=== PATIENT | female | born 1955 | race Caucasian/White ===

== ENCOUNTER 2017-04-16 11:22 | Observation (INO) | payer BC ==
[~2017-04-16] VITALS: Ht 157.5 cm; Wt 75.0 kg
[~2017-04-16 11:22] MED LIST: ATEN25TA PO; LIPI40TA PO
[2017-04-16 11:24] VITALS: BP 189/92; PULSE 72; RESP 20; TEMP 97.3; O2SAT 98
[2017-04-16] MEDS ORDERED: SODIUM CHLORIDE 0.9% FLUSH 10 ML FLUSH IVF PRN (11:45)
[2017-04-16] MEDS ORDERED: NITROGLYCERIN 0.4 MG SL 25 TABS/BTL SL ONE (11:45)
--- NOTE | 2017-04-16 11:47 | PD ---
HPI Chief Complaint: Chest Pain Time Seen by Provider: 11:43 Travel History International Travel<30 days: No Contact w/Intl Traveler<30days: No Traveled to known affect area: No History of Present Illness HPI Patient is a 6-year-old female presenting to emergency evaluation of chest pain. Patient states she had midsternal chest pain last night after dinner, this resolved on its own and she slept normally. She woke up this morning went to [employer] came home and ate breakfast when the chest pain started again, with this episode it radiated to her left arm and to her back and she stated her left arm felt numb. She reports the pain is more of an ache, her pain is rated at a 4 out of 10 at its worst. She denies any shortness of breath, nausea , vomiting, abdominal pain. Patient does report chewing Tums a lot but has no formal diagnosis of GERD. She is followed by Dr. Allison due to significant family history of cardiac disease. Mother with CHF, father with stroke, hypertension,AMI. Heart attack was not at an early age however. She does report that her brother has had several stents placed. Her family members were smokers, she has no history of tobacco use. PFSH Past Medical History High Cholesterol: Yes Hypertension: Yes Menopausal: Yes Past Surgical History Abdominal Surgery: Yes (TUMMY TUCK) Tonsillectomy: Yes Family History Family Hypercholesterolemia: Yes Social History Alcohol Use: Yes (SOCIAL) Tobacco Use: No Substance Use: No Allergies-Medications (Allergen,Severity, Reaction): Coded Allergies: No Known Allergies (Unverified , 04/26/16) Reported Meds & Prescriptions Reported Meds & Active Scripts Active Reported Lipitor (Atorvastatin Calcium) 40 Mg Tab 40 Mg PO HS Atenolol 25 Mg Tab 25 Mg PO DAILY Review of Systems Except as stated in HPI: all other systems reviewed are Neg Eyes: No: Visual changes HENT: No: Headaches Cardiovascular: Positive: Chest Pain or Discomfort, No: Dyspnea on exertion Respiratory: No: Shortness of Breath Gastrointestinal: No: Nausea Genitourinary: No: Dysuria Neurologic: Positive: Paresthesia, No: Weakness, Dizziness, Syncope Physical Exam Narrative GENERAL: Well-developed, well-nourished, alert female. Resting comfortably in no acute distress SKIN: Warm and dry. HEAD: Atraumatic. Normocephalic. EYES: Pupils equal and round. No scleral icterus. No injection or drainage. ENT: No nasal bleeding or discharge. Mucous membranes pink and moist. NECK: Trachea midline. No JVD. CARDIOVASCULAR: Regular rate and rhythm. RESPIRATORY: No accessory muscle use. Clear to auscultation. Breath sounds equal bilaterally. GASTROINTESTINAL: Abdomen soft, non-tender, nondistended. Hepatic and splenic margins not palpable. MUSCULOSKELETAL: Extremities without clubbing, cyanosis, or edema. No obvious deformities. NEUROLOGICAL: Awake and alert. No obvious cranial nerve deficits. Motor grossly within normal limits. Five out of 5 muscle strength in the arms and legs. Normal speech. PSYCHIATRIC: Appropriate mood and affect; insight and judgment normal. Data Data Last Documented VS Vital Signs Date Time Temp Pulse Resp B/P Pulse Ox O2 Delivery O2 Flow Rate FiO2 04/16/17 13:14 74 16 127/61 100 Room Air 04/16/17 12:10 2 04/16/17 11:24 97.3 Orders Electrocardiogram (04/16/17 11:35) Ckmb (Isoenzyme) Profile (04/16/17 11:35) Complete Blood Count With Diff (04/16/17 11:35) Comprehensive Metabolic Panel (04/16/17 11:35) Magnesium (Mg) (04/16/17 11:35) Prothrombin Time / Inr (Pt) (04/16/17 11:35) Act Partial Throm Time (Ptt) (04/16/17 11:35) Troponin I (04/16/17 11:35) Lipase (04/16/17 11:35) Chest, Single Ap (04/16/17 11:35) Ecg Monitoring (04/16/17 11:35) Bilateral Bp Monitoring (04/16/17 11:35) Iv Access Insert/Monitor (04/16/17 11:35) Oximetry (04/16/17 11:35) Oxygen Administration (04/16/17 11:35) Sodium Chloride 0.9% Flush (Ns Flush) (04/16/17 11:45) Nitroglycerin Sl (Nitrostat Sl) (04/16/17 11:45) CKMB (04/16/17 11:55) CKMB% (04/16/17 11:55) Admit Order (Ed Use Only) (04/16/17 13:46) Labs Laboratory Tests Test 04/16/17 11:55 White Blood Count 5.2 TH/MM3 Red Blood Count 5.01 MIL/MM3 Hemoglobin 12.3 GM/DL Hematocrit 38.3 % Mean Corpuscular Volume 76.3 FL Mean Corpuscular Hemoglobin 24.6 PG Mean Corpuscular Hemoglobin 32.2 % Concent Red Cell Distribution Width 16.0 % Platelet Count 221 TH/MM3 Mean Platelet Volume 9.7 FL Neutrophils (%) (Auto) 72.3 % Lymphocytes (%) (Auto) 17.3 % Monocytes (%) (Auto) 9.1 % Eosinophils (%) (Auto) 1.1 % Basophils (%) (Auto) 0.2 % Neutrophils # (Auto) 3.8 TH/MM3 Lymphocytes # (Auto) 0.9 TH/MM3 Monocytes # (Auto) 0.5 TH/MM3 Eosinophils # (Auto) 0.1 TH/MM3 Basophils # (Auto) 0.0 TH/MM3 CBC Comment DIFF FINAL Differential Comment Prothrombin Time 10.7 SEC Prothromb Time International 1.0 RATIO Ratio Activated Partial 25.5 SEC Thromboplast Time Sodium Level 140 MEQ/L Potassium Level 4.1 MEQ/L Chloride Level 107 MEQ/L Carbon Dioxide Level 25.3 MEQ/L Anion Gap 8 MEQ/L Blood Urea Nitrogen 17 MG/DL Creatinine 0.92 MG/DL Estimat Glomerular Filtration 62 ML/MIN Rate Random Glucose 87 MG/DL Calcium Level 9.1 MG/DL Magnesium Level 2.3 MG/DL Total Bilirubin 0.4 MG/DL Aspartate Amino Transf 30 U/L (AST/SGOT) Alanine Aminotransferase 29 U/L (ALT/SGPT) Alkaline Phosphatase 96 U/L Total Creatine Kinase 152 U/L Creatine Kinase MB 1.8 NG/ML Troponin I LESS THAN 0.02 NG/ML Total Protein 7.1 GM/DL Albumin 3.6 GM/DL Lipase 106 U/L [facility] Medical Decision Making Medical Screen Exam Complete: Yes Emergency Medical Condition: Yes Interpretation(s) Laboratory Tests Test 04/16/17 11:55 White Blood Count 5.2 TH/MM3 Red Blood Count 5.01 MIL/MM3 Hemoglobin 12.3 GM/DL Hematocrit 38.3 % Mean Corpuscular Volume 76.3 FL Mean Corpuscular Hemoglobin 24.6 PG Mean Corpuscular Hemoglobin 32.2 % Concent Red Cell Distribution Width 16.0 % Platelet Count 221 TH/MM3 Mean Platelet Volume 9.7 FL Neutrophils (%) (Auto) 72.3 % Lymphocytes (%) (Auto) 17.3 % Monocytes (%) (Auto) 9.1 % Eosinophils (%) (Auto) 1.1 % Basophils (%) (Auto) 0.2 % Neutrophils # (Auto) 3.8 TH/MM3 Lymphocytes # (Auto) 0.9 TH/MM3 Monocytes # (Auto) 0.5 TH/MM3 Eosinophils # (Auto) 0.1 TH/MM3 Basophils # (Auto) 0.0 TH/MM3 CBC Comment DIFF FINAL Differential Comment Prothrombin Time 10.7 SEC Prothromb Time International 1.0 RATIO Ratio Activated Partial 25.5 SEC Thromboplast Time Sodium Level 140 MEQ/L Potassium Level 4.1 MEQ/L Chloride Level 107 MEQ/L Carbon Dioxide Level 25.3 MEQ/L Anion Gap 8 MEQ/L Blood Urea Nitrogen 17 MG/DL Creatinine 0.92 MG/DL Estimat Glomerular Filtration 62 ML/MIN Rate Random Glucose 87 MG/DL Calcium Level 9.1 MG/DL Magnesium Level 2.3 MG/DL Total Bilirubin 0.4 MG/DL Aspartate Amino Transf 30 U/L (AST/SGOT) Alanine Aminotransferase 29 U/L (ALT/SGPT) Alkaline Phosphatase 96 U/L Total Creatine Kinase 152 U/L Creatine Kinase MB 1.8 NG/ML Troponin I LESS THAN 0.02 NG/ML Total Protein 7.1 GM/DL Albumin 3.6 GM/DL Lipase 106 U/L Vital Signs Date Time Temp Pulse Resp B/P Pulse Ox O2 Delivery O2 Flow Rate FiO2 04/16/17 11:24 97.3 72 20 189/92 98 Room Air Differential Diagnosis Acute coronary syndrome versus GERD versus arrhythmia versus pleurisy versus other Narrative Course Patient is a 62-year-old female presenting for evaluation of chest pain that had initiated last night, resolved on its own and returned again this morning. Chest pain appears to have been exacerbated by eating dinner last night and again after breakfast and coffee this morning. Patient does have a significant family history, she does have a history of hypertension. She was able to exercise this morning across foot with no chest pain which is reassuring. Labs and imaging ordered and pending. Patient's vital signs reviewed, she is hypertensive, nitroglycerin sublingual 1 dose ordered. Chest x-ray is unremarkable, first set of cardiac enzymes are negative. Labs are otherwise unremarkable. Attempted to contact Dr. Allison to discuss treatment plan, she is currently on vacation. With patient's recurring chest pain, family and personal medical history patient will be placed and chest pain center. Patient is agreeable to plan. Orders placed. Diagnosis Primary Impression: Chest pain Admitting Information Admitting Physician Requests: Observation Condition: Stable Mary Estrada CLASSIFICATION CLERK Apr 16, 2017 11:47
[2017-04-16 12:11] VITALS: BP_SYST 145; BP_SYST 149; BP_DIAS 75; BP_DIAS 82; PULSE 54; RESP 16; O2SAT 95
[2017-04-16 12:25] VITALS: BP 123/65; PULSE 63; RESP 16; O2SAT 99
[2017-04-16 12:37] LABS: AUTOMATED NEUTROPHIL # 3.8 TH/MM3 (1.8-7.7); BASOPHIL % 0.2 % (0.0-2.0); EOSINOPHIL # 0.1 TH/MM3 (0-0.4); EOSINOPHIL % 1.1 % (0.0-4.0); HEMATOCRIT 38.3 % (35.0-46.0); HEMO FLAGS DIFF FINAL; LYMPH % 17.3 % (9.0-44.0); LYMPHOCYTE # 0.9 TH/MM3 (1.0-4.8); MEAN CELL VOLUME 76.3 FL (80.0-100.0); MEAN CORPUSCULAR HEMOGLOBIN 24.6 PG (27.0-34.0); MEAN CORPUSCULAR HGB CONC 32.2 % (32.0-36.0); MONO % 9.1 % (0.0-8.0); NEUT % 72.3 % (16.0-70.0); PLATELET COUNT 221 TH/MM3 (150-450); RED BLOOD COUNT 5.01 MIL/MM3 (4.00-5.30); WHITE BLOOD COUNT 5.2 TH/MM3 (4.0-11.0)
--- NOTE | 2017-04-16 12:46 | RADRPT ---
EXAM DATE/TIME: 04/16/2017 11:34 [facility] COMPARISON: No previous studies available for comparison. INDICATIONS : Chest pain. MEDICAL HISTORY : Hypertension. SURGICAL HISTORY : Abdominoplasty. ENCOUNTER: Initial ACUITY: 2 days PAIN SCORE: 5/10 LOCATION: Bilateral chest FINDINGS: A single view of the chest demonstrates the lungs to be symmetrically aerated without evidence of mas s, infiltrate or effusion. The cardiomediastinal contours are unremarkable. Osseous structures are intact. CONCLUSION: Normal examination. Usman Meyers Jr., MD on April 16, 2017 at 12:45 Board Certified Radiologist. This report was verified electronically.
[2017-04-16 12:47] LABS: APTT (PATIENT) 25.5 SEC (24.3-30.1); PROTHROMBIN TIME - PATIENT 10.7 SEC (9.8-11.6)
[2017-04-16 13:02] LABS: ANION GAP 8 MEQ/L (5-15); AST (GOT) 30 U/L (15-37); BICARBONATE 25.3 MEQ/L (21.0-32.0); BLOOD UREA NITROGEN 17 MG/DL (7-18); CHLORIDE 107 MEQ/L (98-107); GLOMERULAR FILTRATION RATE 62 ML/MIN (>89); MAGNESIUM 2.3 MG/DL (1.5-2.5); SODIUM (NA) 140 MEQ/L (136-145)
[2017-04-16 13:09] LABS: POTASSIUM 4.1 MEQ/L (3.5-5.1)
[2017-04-16 13:14] VITALS: BP 127/61; PULSE 74; RESP 16; O2SAT 100
[2017-04-16 13:17] LABS: ALKALINE PHOSPHATASE 96 U/L (45-117); ALT (GPT) 29 U/L (10-53); CREATINE KINASE 152 U/L (26-192); TOTAL BILIRUBIN ADULT 0.4 MG/DL (0.2-1.0)
[2017-04-16 13:30] LABS: CKMB 1.8 NG/ML (0.5-3.6)
[2017-04-16] MEDS ORDERED: NITROGLYCERIN 0.4 MG SL 25 TABS/BTL SL PRN (14:15)
[2017-04-16] MEDS ORDERED: ACETAMINOPHEN 500 MG CPLT PO PRN (14:15)
[2017-04-16] MEDS ORDERED: ONDANSETRON HCL 4 MG/2 ML VIAL IV PRN (14:15)
--- NOTE | 2017-04-16 14:57 | HHI.HP ---
HPI Primary Care Physician Chelsea King MD Chief Complaint Chest pain History of Present Illness 62-year-old female with known hypertension and hyperlipidemia presents to the emergency room for further evaluation of chest pain. Onset 9 AM. Location substernal. Characterized as a pressure. Radiation to her back and left arm. Left arm described as numb. Duration 25 minutes. No associated symptoms of nausea, vomiting, shortness breath, or diaphoresis. No known precipitating factors. Relieving factors chewable aspirin. Had similar episode last evening prior to bed last evening, although states she was able to sleep fine. In fact , she was able to perform [employer] exercises at 6 AM without any chest discomfort. Review of Systems General: No fatigue,weakness, fever, chills, recent illness, recent travel, or change in appetite. Has been her general state of health. Performs CrossFit 3 times/weekly without any chest discomfort. HEENT: No BOWSER, no vision changes, no nasal congestion or drainage, no dysphasia CV: As stated above. No current chest pain or pressure. s RESP: No SOB, cough, wheeze, recent URI, or history of asthma. GI: No nausea, vomiting, bowel changes, diarrhea, constipation, pain, distention , melena, or blood in the stool. : No dysuria, urgency, frequency, history of frequent to UTIs, or history of kidney stones. Reports small simple cyst on left kidney. EXT: No lower leg edema, no paraesthesias MS: No discomfort or change in ROM NEURO: No difficulty with balance, LOC, motor/sensory deficits PSYCH: No anxiety, depression, or situational stress. SKIN: No rashes, no concerning lesions Past Family Social History Allergies: Coded Allergies: No Known Allergies (Unverified , 04/26/16) Past Medical History Hypertension, hyperlipidemia Past Surgical History Appendectomy, tonsillectomy,abdominoplasty Reported Medications Active Reported Lipitor (Atorvastatin Calcium) 40 Mg Tab 40 Mg PO HS Atenolol 25 Mg Tab 25 Mg PO DAILY Active Ordered Medications Current Medications Medications (Trade) Dose Ordered Sig/Gael Route Start Time Stop Time Status Last Admin (Tylenol) 500 mg Q4H PRN PO 04/16/17 14:15 (Zofran Inj) 4 mg Q6H PRN IV 04/16/17 14:15 (Nitrostat Sl) 0.4 mg Q5M PRN SL 04/16/17 14:15 (Aspirin) 325 mg DAILY PO 04/17/17 09:00 Family History Paternal grandfather [place] age 58. Paternal uncle [place] age 60. Father CVA age 60, also had aortic aneurysm. Mother congestive heart failure aortic aneurysm. Brother 3 cardiac stents late 50s. Social History Known hypertension and hyperlipidemia. No known diabetes or personal coronary artery disease. Quit smoking 5 years ago, prior to quitting smoking one pack/weekly. Denies any alcohol or illegal drug use. Endorses an active lifestyle. CrossFit 3 times/weekly. Past cardiac testing No recent stress testing. Last exercise stress test approximately 4 years ago, unremarkable. Follows with Dr. Montse Allison every 6 months. Echocardiogram completed last month, next week as appointment with Dr. Allison to review results. Reports she personally does not have any aortic aneurysm, however both parents did. Physical Exam Vital Signs Vital Signs Date Time Temp Pulse Resp B/P Pulse Ox O2 Delivery O2 Flow Rate FiO2 04/16/17 13:14 74 16 127/61 100 Room Air 04/16/17 12:25 63 16 123/65 99 Room Air 04/16/17 12:11 54 16 145/75 95 Room Air 149/82 04/16/17 12:10 97 Nasal Cannula 2 04/16/17 11:24 97.3 72 20 189/92 98 Room Air Physical Exam GENERAL: Alert WN, WD, NAD, pleasant, female HEAD: NC, AT EYES: Sclera clear, conjunctiva without injection, pupils equal and round ENT: Mucous membranes pink and moist, no nasal discharge or bleeding NECK: Supple, no masses, trachea midline CV: RRR, without murmur, rub, gallop, no JVD, S1-S2 no S3-S4. No carotid bruits. RESP: Clear lungs throughout bilateral, no crackles, wheeze, rhonchi, symmetrical chest rise, nonlabored, able to speak in full sentences ABD: Soft, NT, ND, no masses, positive bowel tones BACK: No CVAT, no scoliosis EXT: Pulses +24, no dependent edema MS: Normal tone 4 extremities, nontender, no obvious deformities, full range of motion NEURO: CN II through CN XII grossly intact, motor strength 5/5, gait WNL PSYCH: A+O 3, pleasant affect, appropriate speech, appropriate mood and affect , insight and judgment SKIN: Normal turgor, normal texture, no lesions, no rashes, brisk cap refill, even hair distribution Laboratory Laboratory Tests Test 04/16/17 11:55 White Blood Count 5.2 Red Blood Count 5.01 Hemoglobin 12.3 Hematocrit 38.3 Mean Corpuscular Volume 76.3 Mean Corpuscular Hemoglobin 24.6 Mean Corpuscular Hemoglobin 32.2 Concent Red Cell Distribution Width 16.0 Platelet Count 221 Mean Platelet Volume 9.7 Neutrophils (%) (Auto) 72.3 Lymphocytes (%) (Auto) 17.3 Monocytes (%) (Auto) 9.1 Eosinophils (%) (Auto) 1.1 Basophils (%) (Auto) 0.2 Neutrophils # (Auto) 3.8 Lymphocytes # (Auto) 0.9 Monocytes # (Auto) 0.5 Eosinophils # (Auto) 0.1 Basophils # (Auto) 0.0 CBC Comment DIFF FINAL Differential Comment Prothrombin Time 10.7 Prothromb Time International 1.0 Ratio Activated Partial 25.5 Thromboplast Time Sodium Level 140 Potassium Level 4.1 Chloride Level 107 Carbon Dioxide Level 25.3 Anion Gap 8 Blood Urea Nitrogen 17 Creatinine 0.92 Estimat Glomerular Filtration 62 Rate Random Glucose 87 Calcium Level 9.1 Magnesium Level 2.3 Total Bilirubin 0.4 Aspartate Amino Transf 30 (AST/SGOT) Alanine Aminotransferase 29 (ALT/SGPT) Alkaline Phosphatase 96 Total Creatine Kinase 152 Creatine Kinase MB 1.8 Troponin I LESS THAN 0.02 Total Protein 7.1 Albumin 3.6 Lipase 106 Result Diagram: 04/16/17 1155 04/16/17 1155 Imaging Last Impressions Chest X-Ray 04/16/17 1135 Signed Impressions: Service Date/Time: Sunday, April 16, 2017 11:34 - CONCLUSION: Normal examination. Usman Meyers Jr., MD Course EKG Normal sinus rhythm, left axis deviation, no ST or T-segment changes Assessment and Plan Assessment and Plan #1 Chest painadmitted to chest pain center. Seen and evaluated by Dr. Rodrigo Hanna. Will complete a exercise stress test this evening, naturally if unremarkable will discharge. Patient is agreeable to plan of care. #2 Hypertension- continue atenolol #3 Hyperlipidemiacontinue atorvastatin Skylar Perales Apr 16, 2017 14:57
[2017-04-16 15:29] VITALS: BP 119/68; PULSE 55; RESP 16; O2SAT 99
--- NOTE | 2017-04-16 16:15 | EKG ---
Date Performed: 04/16/2017 Time Performed: 11:46:35 PTAGE: 62 years EKG: SINUS BRADYCARDIA MODERATE VOLTAGE CRITERIA FOR LVH, CONSIDER NORMAL VARIANT OLD INFERIOR M YOCARDIAL INFARCTION ABNORMAL ECG PREVIOUS TRACING : 04/26/2016 12.15 Compared to prior tracing no significant change DOCTOR: Ira Hamilton Interpretating Date/Time 04/16/2017 16:13:22
[2017-04-16] MEDS ORDERED: LIDOCAINE VISCOUS 2% SOLN 15 ML UDC SWISH-SWAL ONE (16:30)
[2017-04-16] MEDS ORDERED: ALUMINUM/MAGNESIUM/SIMETH 30 ML CUP PO ONE (16:30)
[2017-04-16 19:54] VITALS: BP 123/78; PULSE 60; RESP 17; TEMP 97.4; O2SAT 94
[2017-04-16] MEDS: SODIUM CHLORIDE 0.9% FLUSH 10 ML FLUSH IV FLUSH SCH (20:12)
[2017-04-17 00:14] LABS: CREATINE KINASE 123 U/L (26-192)
[2017-04-17 00:26] LABS: CKMB 1.4 NG/ML (0.5-3.6)
[2017-04-17 00:41] VITALS: BP 172/78; PULSE 59; RESP 17; TEMP 98; O2SAT 98
[2017-04-17 03:57] VITALS: BP 115/68; PULSE 61; RESP 16; TEMP 97.6; O2SAT 96
[2017-04-17 05:30] VITALS: PULSE 60
[2017-04-17 07:44] VITALS: O2SAT 100
[2017-04-17 08:00] VITALS: BP 126/72; PULSE 62; RESP 18; TEMP 98.7; O2SAT 100
[2017-04-17] MEDS ORDERED: ASPIRIN 325 MG TAB PO SCH (09:00)
[2017-04-17] MEDS: SODIUM CHLORIDE 0.9% FLUSH 10 ML FLUSH IV FLUSH SCH (09:00)
--- NOTE | 2017-04-17 11:47 | RADRPT ---
EXAM DATE/TIME: 04/17/2017 08:52 [facility] COMPARISON: No previous studies available for comparison. INDICATIONS : Mid chest pain radiating to the back and arm for one day. Angina DOSE: 25.4 mCi Tc99m Myoview at stress 8.1 mCi Tc99m Myoview at rest REST HEART RATE: 81 BPM TARGET HEART RATE: 134 BPM MAX HEART RATE: 142 BPM REST BLOOD PRESSURE: 128/80 mmHg MAX BLOOD PRESSURE: 160/82 mmHg EJECTION FRACTION: 70% MEDICAL HISTORY : Hypertension. SURGICAL HISTORY : Appendectomy. Tonsillectomy. ENCOUNTER: Initial ACUITY: 1 day PAIN SCALE: 5/10 LOCATION: Midsternal chest TECHNIQUE: The patient underwent upright treadmill exercise in the chest pain center. Continuous ECG tracing wa s monitored during stress. Gated SPECT imaging was performed after stress, and conventional SPECT im aging was performed at rest. The examination was performed on a SPECT/CT scanner, both attenuation-c orrected and non-corrected datasets were reviewed. FINDINGS: DISTRIBUTION: The maximum perfused segment at stress is in the anterolateral wall. PERFUSION STUDY: The pattern of perfusion at stress is within normal limits. GATED STUDY: There is intact wall motion and thickening without hypokinetic or dyskinetic segments. CONCLUSION: 1. No focal reversal perfusion abnormality. 2. No focal wall motion abnormality with EF of 70%. RISK CATEGORY: Low (<1% Annual Mortality Rate) Bert Castro MD on April 17, 2017 at 11:44 Board Certified Radiologist. This report was verified electronically.
[2017-04-17 12:04] VITALS: BP 139/68; PULSE 72; RESP 16; O2SAT 98
--- NOTE | 2017-04-17 12:08 | HHI.DCPOC ---
Discharge Care Plan Diagnosis: (1) Musculoskeletal chest pain Goals to Promote Your Health * To prevent worsening of your condition and complications * To maintain your health at the optimal level Directions to Meet Your Goals Take your medications as prescribed Follow your dietary instruction Follow activity as directed Keep your appointments as scheduled Take your immunizations and boosters as scheduled If your symptoms worsen call your PCP, if no PCP go to Urgent Care Center or Emergency Room Smoking is Dangerous to Your Health. Avoid second hand smoke Call the 24-hour hour crisis hotline for domestic abuse at Skylar Perales Apr 17, 2017 12:08
--- NOTE | 2017-04-17 13:25 | EKG ---
Date Performed: 04/16/2017 Time Performed: 14:39:34 PTAGE: 62 years EKG: SINUS BRADYCARDIA MODERATE VOLTAGE CRITERIA FOR LVH, CONSIDER NORMAL VARIANT ABNORMAL ECG PREVIOUS TRACING : 04/16/2017 11.46 Since previous tracing, no significant change noted DOCTOR: Rodrigo Hanna Interpretating Date/Time 04/17/2017 13:19:37
--- NOTE | 2017-04-17 13:26 | TR ---
Date Performed: 04/16/2017 Time Performed: 17:23:28 DOCTOR: Rodrigo Hanna DRUG LIST: CLINICAL HISTORY: REASON FOR TEST: Chest pain REASON FOR ENDING: OBSERVATION: CONCLUSION: Etienne protocol completed. Stopped sec to exceeding target heart rate and leg fatigue . Maximum RD=509 Target HR Achieved=90.0% Maximum XS=728/112 Total Exercise Time=6:25. No reprod ches t discomfort. No ectopy. Lead III and AVF inverted at peak, otherwise no st t segment changes to sugg ischemia. Lead III inverted T waves prior to exam. Normal bp response. Recovery quick and unremarka ble. COMMENTS: st DEPRESSION NOTED AT PEAK EXERCISE. tHIS MAY REPRESENT ISCHEMIA BUT FALSE POSITIVE C ANNOT BE RULED OUT
--- NOTE | 2017-04-17 13:29 | TR ---
Date Performed: 04/17/2017 Time Performed: 10:00:28 DOCTOR: Rodrigo Hanna DRUG LIST: CLINICAL HISTORY: REASON FOR TEST: REASON FOR ENDING: OBSERVATION: CONCLUSION: Etienne protocol completed. Stopped sec to reaching target heart rate.Maximum RS=303 T arget HR Achieved=90.0% Maximum QM=145/80 Total Exercise Time=5:37. No repro chest pain. No ectopy. N uclear images pending. Good exercise tolerance. Normal bp response. Recovery quick and unremarkable. COMMENTS:
== END 2017-04-17 13:02 | disposition home or self-care (01) ==
LOC: NEPE 11:22 → NEDH 13:48 → NEPHCDU 16:06
PROVIDERS: ADMIT Internal Medicine Cardiovascular Disease; ATTEND Internal Medicine Cardiovascular Disease
DX: R07.89 Other chest pain (principal); I10 Essential (primary) hypertension; E78.5 Hyperlipidemia, unspecified; R94.31 Abnormal electrocardiogram [ECG] [EKG]; Z79.82 Long term (current) use of aspirin; Z82.49 Family history of ischemic heart disease and other diseases of the circulatory system; Z87.891 Personal history of nicotine dependence; Z79.899 Other long term (current) drug therapy
CPT/HCPCS: 71010; 78452; 80053; 82550; 82552; 83690; 83735; 84484; 85025; 85610; 85730; 93005; 93017; 99285; A9502; G0378